=== PATIENT | male | born 1990 | race African-American/Black ===

== ENCOUNTER 2024-02-27 12:35 | Emergency (ER) | payer OTHER ==
[~2024-02-27] VITALS: Ht 170.2 cm; Wt 75.0 kg
[2024-02-27 12:37] VITALS: O2SAT 100
[2024-02-27] MEDS ORDERED: IBUPROFEN 800MG TABLET PO ONE (12:45)
[2024-02-27] MEDS ORDERED: HYDROCODONE/ACETAMINOPHEN 10/325MG TABLET PO ONE (12:45)
[2024-02-27] MEDS ORDERED: IBUP-2030 MT (14:35)
[2024-02-27] MEDS ORDERED: CYCL5TAB3 MT (14:35)
[2024-02-27] MEDS: HYDROCODONE/ACETAMINOPHEN 10/325MG TABLET PO NR (15:20)
[2024-02-27] MEDS: IBUPROFEN 800MG TABLET PO NR (15:20)
[2024-02-27 15:35] VITALS: BP 142/66; PULSE 86; RESP 17; O2SAT 98
== END 2024-02-27 15:37 | disposition home or self-care (01) ==
LOC: ER 12:35
DX: G89.11 Acute pain due to trauma (principal); M54.50 Low back pain, unspecified; V49.40XA Driver injured in collision with unspecified motor vehicles in traffic accident, initial encounter; Y93.89 Activity, other specified; Y92.89 Other specified places as the place of occurrence of the external cause; Y99.8 Other external cause status
CPT/HCPCS: 72100; 99283